=== PATIENT | male | born 1995 | race Caucasian/White ===

== ENCOUNTER 2017-07-02 11:10 | Inpatient (IN) | payer SELFPAY ==
[~2017-07-02] VITALS: Ht 167.6 cm; Wt 63.5 kg
--- NOTE | 2017-07-02 11:10 | NUR ---
Patient BIBA [facility] accompanied by Juan MCCLAIN, transferred to bed 5. RN evaluating patient at bedside.
--- NOTE | 2017-07-02 11:13 | NUR ---
Dr. La evaluating patient at bedside.
[2017-07-02 11:14] VITALS: BP 145/65
[2017-07-02] MEDS ORDERED: HALOPERIDOL IM 5 MG/ML VIAL IM ONE (11:20)
[2017-07-02] MEDS ORDERED: LORazepam 2 MG/ML VIAL IM ONE (11:20)
[2017-07-02] MEDS ORDERED: diphenhydrAMINE 50 MG/ML VIAL ONE (11:20)
[2017-07-02] MEDS ORDERED: diphenhydrAMINE 50 MG/ML VIAL IM ONE (11:20)
--- NOTE | 2017-07-02 11:20 | NUR ---
PATIENT BIB EMS FROM FIELD FOR ETOH. PT IS SCREAMING AND YELLING, KICKING, UN COOPERATIVE UPON ARRIVE. NO INJURY NOTED. ARCHANA PAIN, VSS; ER MD MADE AWARE OF PT STATUS.
[2017-07-02] MEDS ORDERED: LORazepam 2 MG/ML VIAL ONE (11:21)
--- NOTE | 2017-07-02 11:21 | NUR ---
PT IS EVERY COMBATIVE, MEDICATED, SOFT RESTRAIN PLACED AT THIS TIME FOR SAFTY ORDERED, WILL CLOSE MONITOR.
[2017-07-02] MEDS ORDERED: HALOPERIDOL IM 5 MG/ML VIAL ONE (11:22)
--- NOTE | 2017-07-02 11:49 | NUR ---
Patient taken to CT scan/XRAY via gurney by chaim, accompanied by RN.
--- NOTE | 2017-07-02 11:50 | NUR ---
SOFT RESTRAIN D/C DUE TO PT IS MORE RELAXED AND ASLEEP IN BED, NO INJURY OCCURED AT THIS TIME.
[2017-07-02 12:30] LABS: BASOPHILS % (AUTO) 0.7 % (0.0-2.0); EOSINOPHILS % (AUTO) 0.1 % (0.0-4.0); HEMATOCRIT 48.8 % (36-52); HEMOGLOBIN 16.9 g/dL (12.0-18.0); LYMPHOCYTES # (AUTO) 1.1 K/uL (2.0-11.5); LYMPHOCYTES % (AUTO) 19.2 % (20.5-51.1); MEAN CORPUSCULAR HEMOGLOBIN 30 pg (27-31); MEAN CORPUSCULAR HGB CONC 35 g/dL (33-37); MEAN CORPUSCULAR VOLUME 86.6 fL (80-94); MONOCYTES # (AUTO) 0.5 K/uL (0.8-1.0); MONOCYTES % (AUTO) 8.8 % (1.7-9.3); NEUTROPHILS % (AUTO) 71.2 % (42.2-75.2); PLATELET COUNT (AUTO) 162 K/uL (140-450); RED BLOOD CELL COUNT(AUTO) 5.63 MIL/uL (4.20-6.10); RED CELL DISTRIBUTION WIDTH 14.4 % (11.6-13.7); WHITE BLOOD COUNT (AUTO) 5.6 K/uL (4.8-10.8)
[2017-07-02 12:52] LABS: ANION GAP 13.6 (8-16); CARBON DIOXIDE 24.7 mmol/L (21-32); POTASSIUM 3.3 mmol/L (3.5-5.1)
[2017-07-02 12:53] LABS: APPEARANCE,URINE CLEAR (CLEAR); BILIRUBIN,URINE NEGATIVE (NEGATIVE); BLOOD, URINE NEGATIVE (NEGATIVE); COLOR,URINE YELLOW (YELLOW); LEUKOCYTE ESTERASE ,URINE NEGATIVE (NEGATIVE); NITRITE, URINE NEGATIVE (NEGATIVE); UGLUCOSE 1+ (NEGATIVE)
[2017-07-02 12:57] LABS: ALBUMIN 4.3 g/dL (3.4-5.0); TOTAL BILIRUBIN 1.7 mg/dL (0.0-1.0)
[2017-07-02 13:05] LABS: RBC,URINE NONE SEEN /HPF (0-5); WBC,URINE 0-5 (RARE) /HPF (0-5)
[2017-07-02 13:07] LABS: BARBITURATE, URINE NEG. ng/ml (NEG <=200); BENZODIAZEPINE, URINE NEG. ng/mL (NEG <=200); CANNABINOID, URINE NEG. ng/mL (NEG <=50); COCAINE, URINE NEG. ng/mL (NEG <=300); OPIATE, URINE NEG. ng/mL (NEG <=2000); PHENCYCLIDINE SCREEN,URINE NEG. ng/mL (NEG <=25)
--- NOTE | 2017-07-02 14:00 | NUR ---
PT IS ASLEEP IN BED, NO S/S OF DISTRESS, VSS.
[2017-07-02] MEDS ORDERED: ACETAMINOPHEN 325 MG TAB PO PRN (15:05)
[2017-07-02] MEDS ORDERED: ONDANSETRON 4 MG/2 ML VIAL IVP PRN (15:05)
[2017-07-02] MEDS ORDERED: LORazepam 2 MG/ML VIAL IVP PRN (15:35)
[2017-07-02] MEDS ORDERED: POTASSIUM CHLORIDE 10 MEQ TABER PO SCH (15:39)
--- NOTE | 2017-07-02 15:44 | NUR ---
Patient admitted to care of DR. CORDOVA. Admited to MED/SURG. Will go to room 111B. Belongings list completed. Report to CHRISTIE HAMILTON AT BEDSIDE, VSS.
--- NOTE | 2017-07-02 15:44 | NUR ---
PATIENT BROUGHT OVER TO UNIT VIA GURNEY FROM THE ER. PATIENT IS DROWSY DUE TO THE MEDS THAT WERE GIVEN IN THE ER. HAS NO SIGNS AND SYMPTOMS OF ACUTE DISTRESS NOTED AT THIS TIME. HAS IV TO THE RIGHT AC 20G, SALINE LOCK AT THIS TIME. HAS LACERATION TO THE RIGHT THUMB NEXT TO THE NAIL. TRIED TO ORIENT PATIENT TO THE ROOM BUT HE CONTINUES TO SLEEP. WILL TRY AGAIN WHEN MORE AWAKE. BED IN LOWEST POSITION, SIDE RAILS UP X2, CALL LIGHT WITHIN REACH. WILL PLACE ON FALL RISK PROTOCOL FOR NOW. WILL CONTINUE TO MONITOR.
[2017-07-02 15:45] VITALS: BP 112/54
[2017-07-02] MEDS: NACL 0.9% 1,000 ML IV SCH ×2 (16:24→22:40)
--- NOTE | 2017-07-02 19:21 | NUR ---
ENDORSED PATIENT TO NON LICENSED OPERATOR RN FOR CONTINUITY OF CARE. PATIENT IN STABLE CONDITION.
--- NOTE | 2017-07-02 19:22 | NUR ---
RECEIVED REPORT FROM DAY SHIFT NURSE. PT SLEEPING BUT AROUSABLE. NO S/S RESP DISTRESS NOTED. NO S/S OF PAIN. IV TO RIGHT AC #20G, NS AT 150 ML/HR, INFUSING WELL. SAFETY PRECAUTION IN PLACE. CALL LIGHT WITHIN REACH.
[2017-07-02 19:45] LABS: CHOL/HDL RATIO 2.4 (1-4.5); FREE T4 (FREE THYROXINE) 0.87 ng/dL (0.76-1.46); MAGNESIUM 2.2 mg/dL (1.8-2.4); PHOSPHORUS 2.5 mg/dL (2.5-4.9); THYROID STIMULATING HORMONE 0.68 uIU/mL (0.34-3.74)
[2017-07-02] MEDS ORDERED: DOCUSATE SODIUM 100 MG GELCAP PO SCH (21:00)
[2017-07-02] MEDS ORDERED: LORazepam 1 MG TAB PO SCH (21:00)
--- NOTE | 2017-07-02 21:21 | NUR ---
PT IN BED, AWAKE. DUE MEDS GIVEN. PT TOLERATED WELL.
[2017-07-02 23:46] LABS: PROTHROMBIN TIME 11.9 secs (10.8-13.4)
[2017-07-03] VITALS: BP 92/52
--- NOTE | 2017-07-03 00:05 | NUR ---
DR. SIDDIQI SPOKE WITH THE PT. PT STATED HE WANTS TO LEAVE THE HOSPITAL NOW. PT IS [id number]. PT SIGNED AMA.
--- NOTE | 2017-07-03 00:25 | NUR ---
IV LINE, ARM BAND REMOVED. PT LEFT THE HOSPITAL IN STABLE CONDITION. .
[2017-07-03] MEDS ORDERED: THIAMINE 100 MG TAB PO SCH (09:00)
[2017-07-03] MEDS ORDERED: MULTIVITAMIN 1 TAB PO SCH (09:00)
[2017-07-03] MEDS ORDERED: FOLIC ACID 1 MG TAB PO SCH (09:00)
== END 2017-07-03 00:25 | disposition left against medical advice (07) | DRG 917 ==
LOC: MED 11:10 → MTU 15:09
PROVIDERS: ADMIT Family Medicine; ATTEND Family Medicine
DX: T51.91XA Toxic effect of unspecified alcohol, accidental (unintentional), initial encounter (principal); G92 Toxic encephalopathy; E80.6 Other disorders of bilirubin metabolism; F10.129 Alcohol abuse with intoxication, unspecified; E87.6 Hypokalemia; Z53.21 Procedure and treatment not carried out due to patient leaving prior to being seen by health care provider; Y90.7 Blood alcohol level of 200-239 mg/100 ml; Y92.89 Other specified places as the place of occurrence of the external cause
CPT/HCPCS: 36415; 70450; 71045; 76705; 80053; 80305; 81001; 82150; 83036; 83690; 83735; 83880; 84100; 84439; 84443; 84484; 85025; 85610; 85730; 96372; 99285; G0482; J1200; J1630; J2060; J7030; Q0092